=== PATIENT | female | born 1980 | race Hispanic/Latino ===

== ENCOUNTER 2020-07-01 05:05 | Emergency (ER) | payer OTHER | END 2020-07-01 05:30 | disposition home or self-care (01) | LOC: ERS 05:05 | DX: L50.9 Urticaria, unspecified (principal) | CPT/HCPCS: 99281 ==

== ENCOUNTER 2020-07-01 19:23 | Emergency (ER) | payer OTHER ==
[2020-07-01] MEDS ORDERED: diphenhydrAMINE 50 MG/ML VIAL ONE (20:24)
[2020-07-01 20:34] LABS: #Basophils 0.1 thou/uL (0.0-0.2); #Lymphocytes 2.4 thou/uL (1.20-3.40); #Monocytes 0.5 thou/uL (0.11-0.59); #Neutrophils 9.5 thou/uL (1.40-6.50); %Basophils 0.5 % (0.0-1.0); %Eosinophils 0.4 % (0.0-10.0); %Lymphocytes 19.4 % (21.0-51.0); %Monocytes 3.6 % (0.0-10.0); %Neutrophils 76.1 % (42.0-75.0); Hemoglobin 13.3 g/dL (12.0-16.0); Mean Corpuscular HGB CONC 33.7 g/dL (32.0-36.0); Mean Corpuscular Hemoglobin 30.2 pg (27.0-31.0); Mean Corpuscular Volume 89.6 fL (78.0-98.0); Platelet Count 316 thou/uL (130-400); RBC Distribution Width 12.1 % (11.5-14.5); White Blood Cell (WBC) Count 12.5 thou/uL (4.8-10.8)
--- NOTE | 2020-07-01 20:45 | RAD ---
EXAM: Chest PA and lateral: HISTORY: Worsening rash COMPARISON: 02/27/2007 FINDINGS: Heart: Normal cardiac silhouette Aorta: Unremarkable Pulmonary vessels: Normal Costophrenic angles: Costophrenic angles are clear. Lungs: No consolidation or masses. Pneumothorax: No pneumothorax Osseous structures: No osseous abnormalities IMPRESSION: No acute cardiopulmonary process.
[2020-07-01 20:57] LABS: ALT (SGPT) 23 U/L (8-55); AST (SGOT) 19 U/L (5-34); Albumin 4.9 g/dL (3.5-5.0); Alkaline Phosphatase 80 U/L (40-110); Anion Gap 16 mmol/L (10-20); BUN (Urea Nitrogen) 13 mg/dL (7.0-18.7); Bilirubin, Total 0.5 mg/dL (0.2-1.2); Calc. Creatinine Clearance 0 mL/min (70-130); Calcium 9.5 mg/dL (7.8-10.44); Carbon Dioxide 23 mmol/L (22-29); Chloride 106 mmol/L (98-107); Estimated GFR-MDRD 86; Globulin 3.4 g/dL (2.4-3.5); Glucose 98 mg/dL (70-105); Potassium 3.5 mmol/L (3.5-5.1); Protein, Total 8.3 g/dL (6.0-8.3); Sodium 141 mmol/L (136-145)
== END 2020-07-01 22:46 | disposition home or self-care (01) ==
LOC: ERS 19:23
DX: R21 Rash and other nonspecific skin eruption (principal); D72.829 Elevated white blood cell count, unspecified
CPT/HCPCS: 36415; 71046; 80053; 85025; 86140; 96372; 99281; J1200